=== PATIENT | male | born 1955 | race Caucasian/White ===

== ENCOUNTER → 2023-11-07 11:04 | Outpatient (REF) | payer MEDICARE, OTHER, SELFPAY | LOC: RCS 11:04 | PROVIDERS: ATTENDING PHYSICIAN Nurse Practitioner; FAMILY PHYSICIAN Internal Medicine | DX: I45.10 Unspecified right bundle-branch block (principal) | CPT/HCPCS: 93306 ==

== ENCOUNTER 2024-02-29 23:17 | Emergency (ER) | payer MEDICARE, OTHER, SELFPAY ==
[2024-02-29 23:18] VITALS: BP 188/86
[2024-02-29 23:21] LABS: Glucose - Point of Care 127 mg/dl (70-99)
[2024-02-29 23:33] VITALS: BMI 43.2
[2024-02-29 23:38] VITALS: BP 173/84
[2024-03-01 00:14] LABS: ALT (SGPT) 44 U/L (0-50); AST (SGOT) 30 U/L (17-59); Albumin 4.6 g/dl (3.5-5.0); Alkaline Phosphatase 58 U/L (38-126); Blood Urea Nitrogen 22 mg/dl (9-20); Carbon Dioxide 25 mmol/L (22-30); Chloride 105 mmol/L (98-107); Estimated Creatinine Clearance 84 ml/min; Glucose 143 mg/dl (70-99); Potassium 4.5 mmol/L (3.5-5.1); Sodium 141 mmol/L (135-145); Total Bilirubin 0.4 mg/dl (0.2-1.3); Total Protein 7.2 g/dl (6.3-8.2); eGFR > 60.00
--- NOTE | 2024-03-01 00:51 | ED.GENMED ---
History of Present Illness
General
Chief Complaint: Blood Sugar Problem
Source: patient
Exam Limitations: none
Time Seen by Provider: 02/29/24 23:26
Nursing documentation reviewed up to this point in time: agreed with
History of Present Illness
History of Present Illness:
68 y/o M ith h/o HTN HLD, DM
hs been on jardiance, metformim and glimeperide for a while and then just recently added mounjaro 7 weeks ago
was at a lower dose for 4 weeks and up to this dose the past 2 weeks and did the shot today around the same time in the afternon as all of his other meds (except bp meds, didn't take those today)
and his new dexcom monitor was alarming since around then that his BG wa 50s
pt says that he hd it alarm overnight lats night too
40s were the lowest readings, most int he 50 despite him eating and drinking sugary foods/drinks
he feels fine
he doesn't have a regular glucometer at home anymore
got the dexcom 10 days ago, but it was a trial for 3 dys and then this one has been on for 7 days
he thinks maybe he bumped it but he isn't sure
Past History
Past History
ED Past Medical History: Asthma, HTN, Hypercholesterolemia, NIDDM, Other (Kidney stones, obstructive sleep apnea utilizes CPAP nightly), Other (Morbid obesity) and Other (Asthma, hypertension, hyperlipidemia, diabetes)
Social History
Tobacco: Non-smoker
Alcohol: Occasional
Personal:
Living: with family
Employment: Retired
Family History
Family History: Hypertension
Review of Systems
Review of Systems
Allergies reviewed?: Yes
All Other Systems: Not applicable
Phy Exam
Physical Exam
Physical Exam:
GENERAL: Alert , in no apparent distress
ENT: o/p clr, mmm.
CARDIAC: Regular rate and rhythm .
LUNGS: Clear breath sounds bilaterally, no acute respiratory distress, no wheezes/rales/rhonchi
ABDOMEN: Soft, obese without focal tenderness, no r/g, no cvat, normal bowel sounds
NEUROLOGICAL: Alert and oriented, no focal neuro deficits
PSYCH: Normal and appropriate interaction.
Course
Orders/Labs/Results
Orders:
Orders
02/29/24 23:53
Comprehensive Metabolic Panel Urgent
Abnormal Lab Results
02/29/24 02/29/24
23:20 23:53
BUN 22 H mg/dl
(9-20)
Glucose 143 H mg/dl
(70-99)
POC Glucose 127 H mg/dl
(70-99)
02/29/24 23:53
Vital Signs
Initial and Last Documented VS:
Initial Vital Signs
Temp Pulse Resp BP Pulse Ox
98.3 F 85 18 188/86 99
02/29/24 23:18 02/29/24 23:18 02/29/24 23:18 02/29/24 23:18 02/29/24 23:18
Last Documented Vital Signs
Temp Pulse Resp BP Pulse Ox
98.3 F 79 18 173/84 94
02/29/24 23:18 02/29/24 23:38 02/29/24 23:18 02/29/24 23:38 02/29/24 23:38
MDM/Problems Addressed
Differential Diagnosis Includes:
abnormal monitor/malfunction of device
hypoglycemia
MDM/Problems Addressed:
68 y/o M
some changes to dm meds recently
new dexcom readings low today
pt didn't take his bp meds
elevated bp but downtrending
no symptos of hypoglycemia
pt does take oral hypoglycemia glimeperide
but no changes
accucheck 127 and dexcom reaing 55
serum bg confirmed 143 and dexcom again reading 52
thus this confirms device malfucntion
pt instructed to take it off tonight and ither swith to another monitor or use gluometer strips etc and call hi tempering machine operator.
take bp meds when home
*Critical Care Note
Total Time (30-74mins, 75-104mins- exclusive of procedures): Not Applicable
ED Attending Note
-
Portions of this chart may have been created with voice recognition software.� Occasional wrong word or��sound alike� substitutions may have occurred due to the inherent limitations of voice recognition software.
Discharge Plan
Departure
Patient Disposition: Home (Routine Discharge)
Patient with high blood pressure during this ER visit?: Yes
Condition: Fair
Covid-19: Not Applicable
Discharge Problem:
Borderline hyperglycemia, Malfunction of device
Instructions: Type 2 Diabetes (DC), BLOOD PRESSURE
Prescriptions:
No Action
metformin 500 mg Tablet
500 mg PO TID
fluticasone propion-salmeterol 250-50 mcg/dose Blister With Device
1 inh INHALATION DAILY
pravastatin 40 mg Tablet
40 mg PO DAILY
fexofenadine [Sofia] 180 mg Tablet
180 mg PO DAILY
amlodipine 10 mg Tablet
10 mg PO DAILY
potassium citrate 10 mEq (1,080 mg) Tablet Extended Release
10 meq PO BID
glimepiride 4 mg Tablet
4 mg PO BID
candesartan 32 mg Tablet
32 mg PO DAILY
montelukast 10 mg Tablet
10 mg PO DAILY
hydralazine 50 mg Tablet
50 mg PO BID
ezetimibe 10 mg Tablet
10 mg PO DAILY
testosterone 1.62 % (20.25 mg/1.25 gram) Gel In Packet
1 packet DAILY
Jardiance 25 mg Tablet
25 mg PO DAILY
Mounjaro 5 mg/0.5 mL Pen Injector
5 mg SC QWEEK
(DME) Dexcom G7 Sensor Device
MISCELLANEOUS
Referrals:
Lauri Henderson MD [Family Provider] - Follow up in 2-3 days
Activity Restrictions/Additional Instructions:
YOUR BLOOD SUGAR WAS CONFIRMED TO BE 127 ON THE FINGER PRICK AND 143 ON THE SERUM AND DOES NOT MATCH YOUR DEVICE READINGS THUS CONFIRMING THERE IS SOMETHING MALFUNCTIONING WITH YOUR DEXCOM
SPEAK WITH YOUR SUBWAY TRAIN OPERATOR TOMORROW REGARDING YOUR QUESTIONS ABOUT CONTINUING YUOR MEDICATIONS
BUT IN THE MEANTIME, TURN THE MONITOR OFF FOR TONIGHT
RETURN FOR ANY CONCERNS
TAKE YOUR BLOO PRESSURE MEDICATIONS.
Interventions
Interventions:
*Risk Screen - Suicide Last Done: 02/29/24 23:38
*General Assessment Last Done: 02/29/24 23:18
*Neglect/Abuse Screening Last Done: 02/29/24 23:38
ED- Fall Risk Assessment Last Done: 02/29/24 23:38
*ED COVID-19 Vaccine History Last Done: 02/29/24 23:36
*Nursing Disposition Last Done: 03/01/24 00:30
ED- Neurological Assessment Last Done: 02/29/24 23:39
Discharge Date and Time
Discharge Date/Time: 03/01/24 00:30
Print Language: MAORI
== END 2024-03-01 00:30 | disposition home or self-care (01) ==
LOC: EMR 23:17
PROVIDERS: Physician Assistant; EMERGENCY PHYSICIAN Student in an Organized Health Care Education/Training Program; FAMILY PHYSICIAN Internal Medicine
DX: E11.65 Type 2 diabetes mellitus with hyperglycemia (principal); T85.698A Other mechanical complication of other specified internal prosthetic devices, implants and grafts, initial encounter; X58.XXXA Exposure to other specified factors, initial encounter; Y82.9 Unspecified medical devices associated with adverse incidents; I10 Essential (primary) hypertension; E78.00 Pure hypercholesterolemia, unspecified
CPT/HCPCS: 99283; 80053; 82962

== ENCOUNTER 2024-08-27 16:34 | Inpatient (IN) | payer MEDICARE, OTHER, SELFPAY ==
[2024-08-26] VITALS (14 sets, daily range): BP systolic 115–156; BP diastolic 63–134; PULSE 74–80; BMI 38.7; BMI 40.6
--- NOTE | 2024-08-26 14:51 | ED.CVA ---
ED Provider Triage
<Michael Resendez PA-C - Last Filed: 08/26/24 14:52>
-
Patient seen by provider in Triage?: Seen in Triage
69-year-old male sent in by cardiology for symptoms including headache feeling unsteady dizziness. Having trouble walking with associated burning of the lips. Recently started Crestor. No shortness of breath. No chest pain
Vital signs are stable through triage. There is no aphasia or dysarthria triage. Does note ongoing dizziness will start workup with basic labs EKG. CT head ordered also after discussing with emergency room attending, ordered CT angio of the head
and neck
Patient seen by medical provider at triage but does require further assessment
History of Present Illness
<Michael Resendez PA-C - Last Filed: 08/26/24 14:52>
General
Chief Complaint: CVA/TIA Symptoms
Time Seen by Provider: 08/26/24 19:13
<Akilah Lynn PA-C - Last Filed: 08/27/24 12:26>
General
Source: patient and family
Exam Limitations: none
Onset of Stroke Symptoms
Onset of symptoms known: Yes
Date of onset of symptoms: 08/25/24
History of Present Illness
History of Present Illness:
69yoM with a history of hypertension, hyperlipidemia, type 2 diabetes, obesity, and asthma presenting with his for evaluation of dizziness. Symptoms initially began yesterday morning when he was taking a shower. He states he felt very
unsteady on his feet and he thought he was about to fall. The symptoms initially subsided and he was able to do normal activities for the holiday. Symptoms recurred in the evening and are also present today. Patient is having significant
difficulty with ambulation due to his symptoms. He also reports some burning in his lips. He started taking rosuvastatin 3 days ago and initially thought he may have been having a medication side effect. He called his bag checker who told him
that his symptoms were not related to the medication and he was advised to go to the ED for evaluation. states he is not acting himself and has been very forgetful. Patient describes his dizziness as feeling unsteady and shaky. Patient
denies weakness, paresthesias, visual disturbance.
Past History
<Michael Resendez PA-C - Last Filed: 08/26/24 14:52>
Past History
ED Past Medical History: Asthma, HTN, Hypercholesterolemia, NIDDM, Other (Kidney stones, obstructive sleep apnea utilizes CPAP nightly), Other (Morbid obesity) and Other (Asthma, hypertension, hyperlipidemia, diabetes)
Social History
Tobacco: Non-smoker
Alcohol: Occasional
Personal:
Living: with family
Employment: Retired
Family History
Family History: Hypertension
Phy Exam
<Akilah Lynn PA-C - Last Filed: 08/27/24 12:26>
General Physical Exam
General Presentation: well appearing and no apparent distress
General age: appears stated age
General Skin: warm and dry
General Habitus: normal
ENT Exam
ENT Exam: normocephalic
Eye Exam
Eye Exam: PERRL and EOMI
Cardiovascular Exam
Cardiovascular Exam: regular rate/rhythm
Pulmonary Exam
Pulmonary Exam: lungs clear, no respiratory distress, no rales, no crackles and no rhonchi
Neurological Exam
Neurological Exam: alert, CN II-XII intact, no motor deficits, no sensory deficits, speech normal and other (CN 2-12 grossly intact. PERRL. EOMs intact. Negative drift x4. 5/5 strength and gross sensation intact in all extremities. Normal finger to
nose and heel to alvarado bilaterally.)
NIH Stroke Score
Level of Consciousness: 0 - Alert
LOC questions: 0-Answers both correctly
LOC Commands: 0-Performs both correctly
Best Gaze: 0-Normal
Visual Guerrero: 0=Normal, no visual loss
Facial palsy: 0=Normal, symmetrical
Motor - Right Arm: 0=No drift 10 seconds
Motor - Left Arm: 0=No drift 10 seconds
Motor - Right Le-No drift 5 seconds
Motor - Left Le-No drift 5 seconds
Limb Ataxia: 0-Absent
Sensation: 0-Normal
Best Language: 0-No aphasia
Dysarthria: 0-Normal
Extinction and Inattention: 0-No abnormality
Total Score:: 0
Rody Coma Scale
Eye Opening: Spontaneous
Verbal Response: Oriented
Motor Response: Obeys Commands
GCS Total Score: 15
Skin Exam
Skin Exam: normal color and warm/dry
Psychiatric Exam
Psychiatric Exam: normal mood/affect
Course
<Michael Resendez PA-C - Last Filed: 08/26/24 14:52>
Orders/Labs/Results
Orders:
Orders
08/26/24 Breakfast
2000 calorie (17 carb) Diabetic
At Your Request: Full Participation
08/26/24 14:49
Electrocardiogram (*1) Urgent
Reason for Study: TIA/Stroke
EKG- Treatment ONCE
08/26/24 14:50
CT Head & Neck Angio W/wo IV Stat
Comment: ORDER COMBINED
Reason For Exam: dizzy
08/26/24 14:55
Complete Blood Count/With Diff Urgent
Comprehensive Metabolic Panel Urgent
08/26/24 19:30
Orthostatic VS- Treatment ONCE
0.9% Sodium Chloride 1000 ml [Nss] 1,000 ml IV BOLUS
08/26/24 19:45
Urinalysis Reflex To Culture Urgent
Date Specimen was Collected: 08/26/24
Time Specimen was Collected: 19:44
Urine Microscopic Reflex Cult Urgent
Urine Culture Urgent
GOLD Source: U
Specimen Description:
Date Specimen was Collected: 08/26/24
Time Specimen was Collected: 19:44
08/26/24 20:08
Admit/Transfer Patient As Directed
Co-Sign Provider:
Level of Care: Observation services
Assign to:: Telemetry
Physician / Group: jessica
Diagnosis: TIA
Reason for Telemetry: CVA/TIA
Date to Stop Telemetry: 08/29/24
Time to Stop Telemetry: 11:00
Code Status As Directed
Resuscitation Status: Full Code
PRN Pain Medication Management As Directed
May give lesser potent ordered pain med per pt: Yes
preference::
Protocol:: Medication orders for pain may be administered in a
manner that supports deferring to patient preference
when the pt is:
- Requesting an ordered lesser potent pain medication.
Least to most potent pain medications are defined
as: acetaminophen < NSAID < tramadol < opioids
(morphine, oxycodone, hydromorphone).
- Requesting a lesser dose of the same medication IF
ORDERED.
- Requesting a less intrusive route of administration
if both routes are prescribed by the provider (PO <
IV).
08/26/24 20:18
Meclizine [Antivert] 25 mg PO NOW STA
08/26/24 21:42
0.9% Sodium Chloride 1000 ml [Nss] 1,000 ml IV 100 mls/hr
Acetaminophen [Tylenol/Feverall] 650 mg RECTAL Q4HPRN PRN
Acetaminophen [Tylenol] 650 mg PO Q4HPRN PRN
Dextrose 50%-Water [Dextrose 50% Syringe] 12.5 grams IV [id number] PRN
Glucagon [GlucaGen] 1 mg IM PRN PRN
Triamcinolone Ointment [Triamcinolone Acetonide 0.1% Ointment] 1 applic TOPICAL DAILYPRN PRN
08/26/24 21:42
Case Management Consult ONCE
Case Management Consult: Discharge Planning
Comment: stroke/tia
DIETARY CONSULT Routine
Reason for Consult: stroke/TIA
Plastic Eye Technician Urgent
Activity As Directed
Activity Level: As Tolerated
Bedside Glucose Monitoring As Directed
Frequency: AC&HS
Additional Instructions:: Change to q6h if pt on TPN, tube feeding or not eating
NIH Stroke Scale As Directed
Directions: Per protocol
Comment: every shift and with any change in condition or mental status
Neurological Checks As Directed
Frequency: q4h
Additional Instructions:: q4h x 24h upon admission to the floor, then qshift & with any change in condition
and mental status
Orthostatic Vital Signs As Directed
Orthostatic VS Frequency: BID
Patient Education As Directed
Type: Stroke education packet
Comment: provide to patient and family
Pneumatic Compression Sleeves As Directed
Type: Thigh high
Vital Signs As Directed
Frequency: Per unit guidelines
Cpap [RESP] Routine
Patient to use own unit?: Yes
Ot Eval And Treat Routine
Pt Eval And Treat Routine
Activity Level: As Tolerated
Speech Therapy Eval & Treat Routine
DX Deep Vein Thrombosis Video Routine
08/27/24 07:30
Insulin Aspart Corrective Low [Novolog Flexpen-Low Resistance] See Protocol SC AC
08/27/24 08:00
Amlodipine [Norvasc] 10 mg PO DAILY
Aspirin Chewable [Low Strength Aspirin] 81 mg PO DAILY
Ezetimibe [Zetia] 10 mg PO DAILY
Fluticasone/Salmeterol 115/21 [Advair Hfa 115/21 Mcg Inhaler] 2 puff INH R DAILY
HydrALAZINE [Apresoline] 50 mg PO BID
Montelukast Sodium [Singulair] 10 mg PO DAILY
Potassium Citrate [Urocit-K] 10 meq PO BID
fluticasone propionate 1 spray NASAL DAILY
testosterone 1 pump TOPICAL DAILY
08/27/24 08:09
Basic Metabolic Panel IN AM
Cardiovascular Evaluation IN AM
Complete Blood Count/No Diff IN AM
Glycohemoglobin (HgbA1c) IN AM
08/29/24 11:00
DC Protocol for Telemetry ONCE
Abnormal Lab Results
08/26/24 08/26/24
14:55 19:45
WBC 11.0 H 10^3/uL
(4.8-10.8)
Absolute Neuts (auto) 7.7 H 10^3/uL
(1.4-6.5)
Absolute Monos (auto) 0.7 H 10^3/uL
(0.1-0.6)
Carbon Dioxide 19 L mmol/L
(22-30)
BUN 34 H mg/dl
(9-20)
Creatinine 1.7 H mg/dL
(0.7-1.3)
Glucose 175 H mg/dl
(70-99)
Leukocyte Esterase Rfl 2+ A
(Negative)
Urine Bacteria (Reflex) Few A
(Negative)
Urine Glucose 3+ A
(Negative)
08/26/24 14:55
08/26/24 14:55
Vital Signs
Initial and Last Documented VS:
Initial Vital Signs
Temp Pulse Resp BP Pulse Ox
98.2 F 90 16 144/96 95
08/26/24 14:48 08/26/24 14:48 08/26/24 14:48 08/26/24 14:48 08/26/24 14:48
Last Documented Vital Signs
Temp Pulse Resp BP Pulse Ox
98.0 F 80 18 150/74 93
08/27/24 11:01 08/27/24 11:01 08/27/24 11:01 08/27/24 11:01 08/27/24 11:01
<Akilah Lynn PA-C - Last Filed: 08/27/24 12:26>
Orders/Labs/Results
Orders:
Orders
08/26/24 Breakfast
2000 calorie (17 carb) Diabetic
At Your Request: Full Participation
08/26/24 14:49
Electrocardiogram (*1) Urgent
Reason for Study: TIA/Stroke
EKG- Treatment ONCE
08/26/24 14:50
CT Head & Neck Angio W/wo IV Stat
Comment: ORDER COMBINED
Reason For Exam: dizzy
08/26/24 14:55
Complete Blood Count/With Diff Urgent
Comprehensive Metabolic Panel Urgent
08/26/24 19:30
Orthostatic VS- Treatment ONCE
0.9% Sodium Chloride 1000 ml [Nss] 1,000 ml IV BOLUS
08/26/24 19:45
Urinalysis Reflex To Culture Urgent
Date Specimen was Collected: 08/26/24
Time Specimen was Collected: 19:44
Urine Microscopic Reflex Cult Urgent
Urine Culture Urgent
GOLD Source: U
Specimen Description:
Date Specimen was Collected: 08/26/24
Time Specimen was Collected: 19:44
08/26/24 20:08
Admit/Transfer Patient As Directed
Co-Sign Provider:
Level of Care: Observation services
Assign to:: Telemetry
Physician / Group: jessica
Diagnosis: TIA
Reason for Telemetry: CVA/TIA
Date to Stop Telemetry: 08/29/24
Time to Stop Telemetry: 11:00
Code Status As Directed
Resuscitation Status: Full Code
PRN Pain Medication Management As Directed
May give lesser potent ordered pain med per pt: Yes
preference::
Protocol:: Medication orders for pain may be administered in a
manner that supports deferring to patient preference
when the pt is:
- Requesting an ordered lesser potent pain medication.
Least to most potent pain medications are defined
as: acetaminophen < NSAID < tramadol < opioids
(morphine, oxycodone, hydromorphone).
- Requesting a lesser dose of the same medication IF
ORDERED.
- Requesting a less intrusive route of administration
if both routes are prescribed by the provider (PO <
IV).
08/26/24 20:18
Meclizine [Antivert] 25 mg PO NOW STA
08/26/24 21:42
0.9% Sodium Chloride 1000 ml [Nss] 1,000 ml IV 100 mls/hr
Acetaminophen [Tylenol/Feverall] 650 mg RECTAL Q4HPRN PRN
Acetaminophen [Tylenol] 650 mg PO Q4HPRN PRN
Dextrose 50%-Water [Dextrose 50% Syringe] 12.5 grams IV [id number] PRN
Glucagon [GlucaGen] 1 mg IM PRN PRN
Triamcinolone Ointment [Triamcinolone Acetonide 0.1% Ointment] 1 applic TOPICAL DAILYPRN PRN
08/26/24 21:42
Case Management Consult ONCE
Case Management Consult: Discharge Planning
Comment: stroke/tia
DIETARY CONSULT Routine
Reason for Consult: stroke/TIA
Plastic Eye Technician Urgent
Activity As Directed
Activity Level: As Tolerated
Bedside Glucose Monitoring As Directed
Frequency: AC&HS
Additional Instructions:: Change to q6h if pt on TPN, tube feeding or not eating
NIH Stroke Scale As Directed
Directions: Per protocol
Comment: every shift and with any change in condition or mental status
Neurological Checks As Directed
Frequency: q4h
Additional Instructions:: q4h x 24h upon admission to the floor, then qshift & with any change in condition
and mental status
Orthostatic Vital Signs As Directed
Orthostatic VS Frequency: BID
Patient Education As Directed
Type: Stroke education packet
Comment: provide to patient and family
Pneumatic Compression Sleeves As Directed
Type: Thigh high
Vital Signs As Directed
Frequency: Per unit guidelines
Cpap [RESP] Routine
Patient to use own unit?: Yes
Ot Eval And Treat Routine
Pt Eval And Treat Routine
Activity Level: As Tolerated
Speech Therapy Eval & Treat Routine
DX Deep Vein Thrombosis Video Routine
08/27/24 07:30
Insulin Aspart Corrective Low [Novolog Flexpen-Low Resistance] See Protocol SC AC
08/27/24 08:00
Amlodipine [Norvasc] 10 mg PO DAILY
Aspirin Chewable [Low Strength Aspirin] 81 mg PO DAILY
Ezetimibe [Zetia] 10 mg PO DAILY
Fluticasone/Salmeterol 115/21 [Advair Hfa 115/21 Mcg Inhaler] 2 puff INH R DAILY
HydrALAZINE [Apresoline] 50 mg PO BID
Montelukast Sodium [Singulair] 10 mg PO DAILY
Potassium Citrate [Urocit-K] 10 meq PO BID
fluticasone propionate 1 spray NASAL DAILY
testosterone 1 pump TOPICAL DAILY
08/27/24 08:09
Basic Metabolic Panel IN AM
Cardiovascular Evaluation IN AM
Complete Blood Count/No Diff IN AM
Glycohemoglobin (HgbA1c) IN AM
08/29/24 11:00
DC Protocol for Telemetry ONCE
Abnormal Lab Results
08/26/24 08/26/24
14:55 19:45
WBC 11.0 H 10^3/uL
(4.8-10.8)
Absolute Neuts (auto) 7.7 H 10^3/uL
(1.4-6.5)
Absolute Monos (auto) 0.7 H 10^3/uL
(0.1-0.6)
Carbon Dioxide 19 L mmol/L
(22-30)
BUN 34 H mg/dl
(9-20)
Creatinine 1.7 H mg/dL
(0.7-1.3)
Glucose 175 H mg/dl
(70-99)
Leukocyte Esterase Rfl 2+ A
(Negative)
Urine Bacteria (Reflex) Few A
(Negative)
Urine Glucose 3+ A
(Negative)
08/26/24 14:55
08/26/24 14:55
Vital Signs
Initial and Last Documented VS:
Initial Vital Signs
Temp Pulse Resp BP Pulse Ox
98.2 F 90 16 144/96 95
08/26/24 14:48 08/26/24 14:48 08/26/24 14:48 08/26/24 14:48 08/26/24 14:48
Last Documented Vital Signs
Temp Pulse Resp BP Pulse Ox
98.0 F 80 18 150/74 93
08/27/24 11:01 08/27/24 11:01 08/27/24 11:01 08/27/24 11:01 08/27/24 11:01
<Akilah Lynn PA-C - Last Filed: 08/27/24 12:26>
MDM/Problems Addressed
Differential Diagnosis Includes:
69yoM here with gait imbalance, shakiness, and forgetfulness since yesterday. Also c/o burning lips. Recently started on rosuvastatin. VSS. He is non-toxic appearing. No focal neuro deficits noted. NIHSS 0. Differential diagnosis includes but is not
limited to: dehydration, orthostatic hypotension, vertigo, CVA, arrhythmia
Initial ED plan: Labs and CT obtained in triage. Labs reveal a creatinine of 1.7, up from baseline of 1.2. CTA head/neck negative for large vessel occlusion and acute findings. Patient and report significant difficulty with ambulation due to
his symptoms. Will check orthostatic vital signs and IV fluid bolus ordered. Will admit for further evaluation.
<Akilah Lynn PA-C - Last Filed: 08/27/24 12:26>
*EKG
Interpreted by ED Provider?: Yes
EKG Intrepretation Date: 08/26/24
Heart Rate: 74
Rate: normal
Rhythm: sinus
Meredith: normal axis
QRS Pattern: right bundle branch block
Ischemia: no ischemia
*Critical Care Note
Total Time (30-74mins, 75-104mins- exclusive of procedures): Not Applicable
ED Attending Note
<Michael Resendez PA-C - Last Filed: 08/26/24 14:52>
-
Portions of this chart may have been created with voice recognition software.� Occasional wrong word or��sound alike� substitutions may have occurred due to the inherent limitations of voice recognition software.
Discharge Plan
Departure
Patient Disposition: Admit
Date of Disposition: 08/26/24
Time of Disposition: 19:34
Presentation/result/management discussed w/ accepting MD/DO: Hospitalist
Discharge Problem:
Gait disturbance, Change in mental status, Acute kidney injury
Interventions
Interventions:
*Risk Screen - Suicide Last Done: 08/26/24 22:15
*General Assessment Last Done: 08/26/24 18:07
*Neglect/Abuse Screening Last Done: 08/26/24 14:51
ED- Fall Risk Assessment Last Done: 08/26/24 18:07
*ED COVID-19 Vaccine History Last Done: 08/26/24 22:15
*Nursing Disposition Last Done: 08/26/24 21:40
ED- Pulmonary Assessment Last Done: 08/26/24 18:07
ED- Neurological Assessment Last Done: 08/26/24 19:17
ED- Cardiac Assessment Last Done: 08/26/24 19:17
ED Swallowing Screen Last Done: 08/26/24 18:07
Discharge Date and Time
Discharge Date/Time: 08/26/24 21:41
[2024-08-26 15:06] LABS: % Basophils 0.6 % (0-2); % Eosinophils 1.8 % (0-6); % Immature Granulocytes 0.4 % (0-0.5); % Monocytes 6.3 % (1.7-9.3); % Neutrophils 69.9 % (42.2-75.2); Absolute Basophils 0.1 10^3/uL (0-0.2); Absolute Eosinophils 0.2 10^3/uL (0-0.7); Absolute Lymphocytes 2.3 10^3/uL (1.2-3.4); Absolute Monocytes 0.7 10^3/uL (0.1-0.6); Absolute Neutrophils 7.7 10^3/uL (1.4-6.5); Hematocrit 48.5 % (39.0-52.0); Hemoglobin 16.5 g/dL (13.0-18.0); Mean Corpuscular Hgb 30.1 pg (27.0-31.0); Mean Corpuscular Volume 88.5 fL (80.0-94.0); Mean Platelet Volume 9.7 fL (7.4-10.4); Nucleated Red Blood Cells % 0 % (-); Platelet Count 220 10^3/uL (130-400); Red Blood Cell Count 5.48 10^6/uL (4.70-6.10); Red Cell Dist. Width 13.5 % (11.5-14.5)
[2024-08-26 15:24] LABS: ALT (SGPT) 37 U/L (0-50); AST (SGOT) 25 U/L (17-59); Albumin 4.6 g/dl (3.5-5.0); Alkaline Phosphatase 53 U/L (38-126); Blood Urea Nitrogen 34 mg/dl (9-20); Calcium 9.5 mg/dl (8.4-10.2); Carbon Dioxide 19 mmol/L (22-30); Chloride 107 mmol/L (98-107); Glucose 175 mg/dl (70-99); Potassium 4.4 mmol/L (3.5-5.1); Sodium 137 mmol/L (135-145); Total Bilirubin 0.4 mg/dl (0.2-1.3); eGFR 43.37
[2024-08-26] MEDS: NSS 1000 IV ×2 (19:39→22:37)
--- NOTE | 2024-08-26 19:47 | HPS.HSE ---
Addendum entered and electronically signed by Edgar Valente DO 08/26/24 20:35:
Patient seen and examined independently. Agree with findings and plan as set forth by TORY Gomez.
Patient is a 69y M with PMH significant for HTN, DM-II and asthma who presents to ED complaining of dizziness / room spinning, confusion and generally feeling 'not myself'. Patient states that he started taking rosuvastatin on Friday or Friday
of this week. No other new medications. No sore throat, fever, cough, N/V/D, etc. Patient denies any actual fall or injury. He denies any prior history of similar symptoms.
Ass:
Dizziness / Vertigo
Acute Encephalopathy / Confusion
ERIC
Benign Hypertension
DM-II
Asthma without Acute Exacerbation
Obesity due to excess calories
SANDEE on CPAP
Plan:
Admit for further evaluation and treatment.
Work-up in the ED largely unremarkable - though symptoms persist.
MRI brain in the AM.
PT / OT / Vestibular therapy evaluations.
Hold rosuvastatin for now.
Hold nephrotoxic meds including ARB, spironolactone, etc.
IVFs and repeat labs in the AM.
Original Note:
Family Physician
-
Family Physician: Lauri Henderson
Chief Complaint
-
dizzy
History of Present Illness
69yoM with a history of hypertension, hyperlipidemia, type 2 diabetes, obesity, and asthma presenting with his for evaluation of dizziness. Symptoms initially began yesterday morning when he was taking a shower. He states he felt very
unsteady on his feet and he thought he was about to fall. he felt the room was spinning. they symptoms persisted throughout the day. it eases of when he is sitting down, but the symptoms gets worse everytime he moves. patient complained his lips and
tongue were burning. he was noted confused as per . he was forgetting what medication he was taking. he started taking rosuvastatin 3 days ago and initially thought he may have been having a medication side effect.stated some CURRY. denied fever,
chills, chest pain, sob. denied runny nose, congestion, cough. denied abdominal pain,n,v,d. denied dysuria or hematuria.
CTA negative. admitting for further management.
Medical History
Past Medical History
Past Medical History: Reports Other
Additional Past Medical History:
kidney stones
BPh
cervical spinal stenosis
left cervical radiculopathy
HLD
asthma
HTn
Eczema
Past Surgical History: Reports Other
Additional Past Surgical History:
right knee surgery
left shoulder surgery
Social History
Tobacco: Non-smoker
Alcohol: None
Drug: None
Personal:
Living: With Family
Family History
Family History: Not pertinent
Allergies / Home Medications
Allergies reflects when Allergies were last updated in [facility].
Home Medications with original date entered in [facility]
Allergy/Medication List:
Allergies
Allergy/AdvReac Type Severity Reaction Status Date / Time
carribean lobster Allergy Anaphylaxis Uncoded 08/26/24 17:58
macadamia nuts Allergy Anaphylaxis Uncoded 08/26/24 17:58
Home Medications
amlodipine 10 mg tablet 10 mg PO DAILY 02/29/24
candesartan 32 mg tablet 32 mg PO DAILY 02/29/24
empagliflozin 25 mg tablet (Jardiance) 25 mg PO DAILY 02/29/24
ezetimibe 10 mg tablet 10 mg PO DAILY 02/29/24
fexofenadine 180 mg tablet 180 mg PO DAILY 02/29/24
fluticasone 250 mcg-salmeterol 50 mcg/dose blistr powdr for inhalation 1 inh inhalation DAILY 02/29/24
glimepiride 4 mg tablet 4 mg PO BID 02/29/24
hydralazine 50 mg tablet 50 mg PO BID 02/29/24
metformin 500 mg tablet 500 mg PO TID 02/29/24
montelukast 10 mg tablet 10 mg PO DAILY 02/29/24
potassium citrate 10 mEq (1,080 mg) tablet,extended release 10 meq PO BID 02/29/24
pravastatin 40 mg tablet 40 mg PO DAILY 02/29/24
testosterone 1.62 % (20.25 mg/1.25 gram) transdermal gel packet 1 packet DAILY 02/29/24
tirzepatide 5 mg/0.5 mL subcutaneous pen injector (Mounjaro) 5 mg SC QWEEK 02/29/24
Review of Systems
-
Constitutional: Reports No Symptoms
EENT: Reports No Symptoms
Respiratory: Reports No Symptoms
Cardiac: Reports No Symptoms
Abdomen/GI: Reports No Symptoms
: Reports No Symptoms
Musculoskeletal: Reports No Symptoms
Skin: Reports No Symptoms
Neurological: Reports Dizzy and Headache
Endocrine: Reports No Symptoms
Hematologic/Lymphatic: Reports No Symptoms
Psych: Reports No Symptoms
Physical Exam
Vital Signs
Vital Signs
Temp Pulse Resp BP Pulse Ox
98.4 F 73 16 149/83 92
08/26/24 18:00 08/26/24 18:45 08/26/24 18:45 08/26/24 18:30 08/26/24 18:45
Physical Exam
General: Well Developed, Well Nourished and No Apparent Distress
HEENT: NormoCephalic, Moist mucous membranes and Atraumatic
Respiratory: Clear
Cardiac: S1/S2 and Regular Rhythm; No Murmur or Rub
GI: Soft, Non Tender, Non Distended and Normal Bowel Sounds; No Organomegaly
Rectal: Deferred by Provider
Musculoskeletal: No Clubbing, No Cyanosis and No Edema
Skin: No Rash
Neuro: AO x 3 and Nonfocal/grossly intact
Psych: Calm
Laboratory Results
-
08/26/24 14:55
08/26/24 14:55
Laboratory Results
Total Bilirubin 0.4 mg/dl (0.2-1.3) 08/26/24 14:55
AST 25 U/L (17-59) 08/26/24 14:55
ALT 37 U/L (0-50) 08/26/24 14:55
Alkaline Phosphatase 53 U/L (38-126) 08/26/24 14:55
Data Reviewed
-
CT Scan: Report Reviewed by me
Lab Data: Labs Reviewed by me
Impression/Plan
-
#dizzy/ambulatory dysfunction/metabolic encephalopathy r/o acute CVA/TIA/ vs vertigo
-CTA negative
-UA negative
-obtain MRI
-statin and asa continued
-PT/OT
-orthostatics
-consider neuro consult once MRI resulted
-meclizine prn for vertigo
#acute kidney/metabolic acidosis likely dehydration
-received fluids in ER
-normal saline continued
-BMP in am
#leukocytosis likely reactive
-wbc 11.0
-patient is afebrile
-UA negative
#type 2 Dm
-sliding scale
-CHO diet
-hold Jardiance, glimepiride, metformin
#essential HTN
-Norvasc,Hydralazine, continued with hold parameter
-hold ,candesartan,spironolactone
#Obstructive sleep apnea
-C pap continued
#hst of asthma
-patient not in acute exacerbation
-nebs from home continued
#HLD
-statin continued
#DVT prophylaxis
-scd
#CODE status
-full code
[2024-08-26 19:55] LABS: Urine Albumin Trace (Neg - Trace); Urine Bilirubin Negative (Negative); Urine Character Clear (Clear); Urine Color Yellow; Urine Glucose 3+ (Negative); Urine Ketone Negative (Negative); Urine Leukocyte 2+ (Negative); Urine Nitrite Negative (Negative); Urine Occult Blood Negative (Negative); Urine Specific Gravity 1.015 (<1.030); Urine Urobilinogen Negative (Neg - 1+)
--- NOTE | 2024-08-26 20:18 | PHANOTE ---
med rec tech(08/26/24)-Patient unsure of frequency of his pills, utilized [facility] from 07/23/24 and [facility] to confirm medication frequencies. Patient able to confirm some of his medications.
[2024-08-26 20:34] LABS: Urine Bacteria Few (Negative); Urine Hyaline Cast 0-2 /LPF (0-2); Urine Red Blood Cell 0-2 /HPF (0-2); Urine Squamous Cell 16-20 /LPF (Few)
[2024-08-26] MEDS: ANTIVERT 25 MG PO (21:05)
[2024-08-26 21:51] LABS: Glucose - Point of Care 121 mg/dl (70-99)
[2024-08-27] VITALS (10 sets, daily range): BP systolic 124–167; BP diastolic 72–98; PULSE 75–95; O2SAT 94
[2024-08-27] MEDS: NSS 1000 IV ×2 (06:30→17:18)
[2024-08-27] MEDS: ADVAIR HFA 115/21 MCG INHALER 2 PUFF INH (07:07)
[2024-08-27 07:48] LABS: Glucose - Point of Care 112 mg/dl (70-99)
--- NOTE | 2024-08-27 08:43 | W.PN.HOSP.TC ---
Today's Communication/Plan
-
cont IVF support, monitor renal function
blood pressure control
Glycemic control
ASA Plavix dual antiplatelet
resume home pravastatin
ST/PT/OT
Assessment / Plan
Assessment / Plan
Physical Exam
General: No acute distress, appears comfortable at this time
HEENT: NormoCephalic, Moist mucous membranes and Atraumatic
Respiratory: Clear
Cardiac: S1/S2 and Regular Rhythm; No Murmur or Rub
GI: Soft, Non Tender, Non Distended and Normal Bowel Sounds; No Organomegaly
Musculoskeletal: No Clubbing, No Cyanosis and No Edema, strength 5/5 all ext's
Skin: No Rash
Neuro: AO x 3 immediate and delayed recall intact, finger to nose test wnl, normal heel to alvarado test
Psych: Calm
69M HTN, HLD, DM, Obesity, and asthma p/w dizziness 1 day duration. Reported feeling very unsteady on his feet and he thought he was about to fall. Reported room spinning. Symptoms persisted throughout the day, relieved with sitting down, worse
every time he moves. Patient complained his lips and tongue burning. He was noted confused as per , forgetting what medication he was taking. He started taking rosuvastatin 3 days ago and initially thought he may have been having a medication
side effect. CTA negative. Subsequent MRI however returned positive for stroke. Patient was also noted to have mild ERIC on labwork.
#dizzy/ambulatory dysfunction/metabolic encephalopathy likely due to Stroke
-CTA negative
-UA negative
-MRI positive for acute on subacute infarction multiple areas Left Thalamus, Left Temporal, Right Occipital
-statin and asa continued, Plavix added for planned 21 days dual antiplatelet then cont with ASA alone.
-ST eval appreciated mild cognitive impairment (MOCA 23/30, normal 26/30 or above)
-PT/OT appreciated possible benefit Acute rehab vs outpt therapy (patient prefers outpt)
-orthostatic hypotension, monitor orthostatic vitals
-Neuro eval appreciated outpt follow up with Cardiology for ELKE and implantable awake overnight monitor
#acute kidney/metabolic acidosis likely dehydration
-cont IVF support
-monitor renal function
#leukocytosis likely reactive
-resolved without need for abx
#type 2 Dm
-sliding scale
-CHO diet
-hold Jardiance, glimepiride, metformin due to eric as above
#essential HTN
-Norvasc,Hydralazine, continued with hold parameter
-hold ,candesartan,spironolactone d/t eric and orthostatic hypotension as above
#Obstructive sleep apnea
-C pap continued
#hst of asthma
-patient not in acute exacerbation
-nebs from home continued
#HLD
-statin continued
#DVT prophylaxis
-scd
#CODE status
-full code
Discussed with patient and patient's María
I spent a total of 50 minutes with the patient or on the floor. More than 50% of this time involved counseling and coordination of care.
Anticipated Discharge: 24 - 48 hours
Subjective/Interval History
-
Date of Service: August 27, 2024
Seen and examined at bedside in no acute distress sitting up comfortably in chair. Overall reports feeling well. Dizziness resolved. María present during evaluation.
Objective Data
-
Labs:
Laboratory Results
08/27/24
08:09
WBC Pending
Hgb Pending
Hct Pending
Plt Count Pending
Sodium Pending
Potassium Pending
Chloride Pending
Carbon Dioxide Pending
BUN Pending
Creatinine Pending
Glucose Pending
Calcium Pending
Vital Signs:
Vital Signs
Temp Pulse Resp BP Pulse Ox
98.3 F 81 18 124/74 94
08/27/24 07:31 08/27/24 07:31 08/27/24 07:31 08/27/24 07:31 08/27/24 07:31
I&O
08/26/24 08/27/24 08/28/24
06:59 06:59 06:59
Intake Total 0 / 0
Balance 0 / 0
[2024-08-27] MEDS: APRESOLINE 50 MG PO ×2 (08:59→20:30)
[2024-08-27] MEDS: UROCIT-K 10 MEQ PO ×2 (08:59→20:30)
[2024-08-27] MEDS: LOW STRENGTH ASPIRIN 81 MG PO (08:59)
[2024-08-27] MEDS: NORVASC 10 MG PO (08:59)
[2024-08-27] MEDS: SINGULAIR 10 MG PO (08:59)
[2024-08-27] MEDS: ZETIA 10 MG PO (08:59)
[2024-08-27 09:29] LABS: Blood Urea Nitrogen 25 mg/dl (9-20); Calcium 8.5 mg/dl (8.4-10.2); Carbon Dioxide 20 mmol/L (22-30); Chloride 110 mmol/L (98-107); HDL Cholesterol 32 mg/dl; LDL Cholesterol, Calculated 68 mg/dl; Potassium 4.3 mmol/L (3.5-5.1); Sodium 138 mmol/L (135-145); Total Cholesterol 125 mg/dl (50-199); Triglyceride 127 mg/dl (10-149); Very Low Density Lipoprotein 25 mg/dl (0-30)
[2024-08-27 09:38] LABS: Estimated Creatinine Clearance 68 ml/min; Glucose 103 mg/dl (70-99); Hematocrit 44.2 % (39.0-52.0); Mean Corp Hgb Conc. 33.9 g/dL (33.0-37.0); Mean Corpuscular Hgb 30.5 pg (27.0-31.0); Mean Corpuscular Volume 89.8 fL (80.0-94.0); Platelet Count 190 10^3/uL (130-400); Red Blood Cell Count 4.92 10^6/uL (4.70-6.10); Red Cell Dist. Width 13.8 % (11.5-14.5); White Blood Cell Count 9.4 10^3/uL (4.8-10.8); eGFR 54.75
--- NOTE | 2024-08-27 10:53 | PTOTSP ---
SPEECH THERAPY SWALLOW/SPEECH/LANGUAGE/COGNITIVE COMMUNICATION EVALUATION:
Patient exhibits grossly functional oropharyngeal swallow at this time. No history of dysphagia noted. Patient remains at risk for dysphagia/aspiration due to possible acute CVA/TIA. Recommend continue Regular texture solids, thin liquids.
Medications whole with liquid as best tolerated. General aspiration precautions. ST to follow briefly to ensure adequate diet tolerance.
Patient exhibits grossly functional speech and expressive/receptive language skills, and mild cognitive communication skills characterized by difficulties with STM, visuospatial skills, abstraction, and higher level executive functioning skills.
MOCA version 8.1 was administered. Patient achieved a score of 23/30, indicating slightly below normal level (greater than or equal to 26/30). Subscores as follows: Visuospatial/Executive functionin/5. Namin/3. Attention: 6/6. Language: 3/3.
Abstraction: 2/2. Delayed Recall: 0/5. Orientation: 5/6. Patient appears to be below baseline level of functioning. Skilled ST services for speech/language/cognitive communication are indicated at this time pending MRI results.
RECOMMEND:
1) Regular texture diet, thin liquids
2) Medications whole with liquid as best tolerated
3) General aspiration precautions
4) ST to follow for swallow and cognitive communication therapy
[2024-08-27 11:28] LABS: Glycohemoglobin (HgbA1c) 5.9 % (4.0-5.6)
--- NOTE | 2024-08-27 15:32 | CON.NEURO ---
Neuro Assessment/Plan
Assessment
Acute onset dizziness and mental fogginess
Evidence by MRI of the brain of acute/subacute ischemic lesions in the left thalamic, left temporal lobe, and right occipital lobe with chronic lacunar infarcts in bilateral thalami.
Patient was not a candidate for either tenecteplase or intra-arterial thrombectomy due to timeframe out of window
Plan
Agree with initiation of Aspirin and Clopidogrel for 21 days then Aspirin alone
OK to switch back to Pravastatin for cholesterol control due to concerns with Rosuvastatin by patient
check ELKE and have implantable site monitor as outpatient by occ ther due to multiple and variable location ischemic lesions
OK outpatient rehabilitation
Medical educational materials to be provided
Rehab evaluation
Goal of normotension
Goal of normoglycemia
DVT prophylaxis
Continue CPAP use
Will follow peripherally.
Consultation
Order
Date of Consultation: 08/27/24
Requesting Provider: Hospitalist
Reason for Consult: Dizziness
Subjective/Objective
Subjective Data
Date of Service: August 27, 2024
Right-Handed
Patient began developing sense of brain fog, nausea, and unsteadiness as of August 25, 2024 approximately 2 days after initiation of rosuvastatin and discontinuance of pravastatin. On 08/26/2024, the patient developed a sense of confusion,
continued unsteadiness and lip burning.
Patient was then advised by his occ ther to present to this hospital's emergency department for further evaluation and treatment. As per medical records, the patient has also been described as having cognitive issues without focal weakness.
Dizziness resolved as of noon today, 3 days after onset of symptoms. No prior episodes. Lip burning is present in both lips and tongue numbness, overall reduced in severity.
Objective Data
Vital Signs
Temp Pulse Resp BP Pulse Ox
36.7 C 80 18 150/74 93
08/27/24 11:01 08/27/24 11:01 08/27/24 11:01 08/27/24 11:01 08/27/24 11:01
Lab Results
08/27/24 08:09
08/27/24 08:09
Sodium 138 mmol/L (135-145) 08/27/24 08:09
Potassium 4.3 mmol/L (3.5-5.1) 08/27/24 08:09
BUN 25 mg/dl (9-20) H 08/27/24 08:09
Glucose 103 mg/dl (70-99) H 08/27/24 08:09
Calcium 8.5 mg/dl (8.4-10.2) 08/27/24 08:09
LDL Cholesterol, Calc 68 mg/dl 08/27/24 08:09
Patient Allergies
lobster Allergy (Verified 08/26/24 20:20)
CARRIBEAN LOBSTER-ANAPHYLAXIS
macadamia nut oil Allergy (Verified 08/26/24 20:20)
MACADAMIA NUTS-ANAPHYLAXIS
CVA Assessment
Onset of Stroke Symptoms
Onset of symptoms known: Yes
Date of onset of symptoms: 08/25/24
Time of onset of symptoms: 07:45
Time pt last seen normal is known: Yes
Date last time pt seen normal: 08/25/24
Time last time pt seen normal: 07:45
NIH Stroke Score
Level of Consciousness: 0 - Alert
LOC Questions: 0-Answers both correctly
LOC Commands: 0-Performs both correctly
Best Horizontal Gaze: 0-Normal
Visual Guerrero: 0=Normal, no visual loss
Facial Palsy: 0=Normal, symmetrical
Motor - Right Arm: 0=No drift 10 seconds
Motor - Left Arm: 0=No drift 10 seconds
Motor - Right Le-No drift 5 seconds
Motor - Left Le-No drift 5 seconds
Limb Ataxia: 0-Absent
Sensation: 0-Normal
Best Language: 0-No aphasia
Dysarthria: 0-Normal
Extinction and Inattention: 0-No abnormality
Total Score:: 0
Tenecteplase Contraindications
Inclusion and Exclusion criteria reviewed: Yes
IAT Contraindications: NIHSS < 6
Review of Systems
-
History Source: Patient and Family
All other systems: Reviewed and negative
EENT: Negative Blurry Vision or Swallowing Difficulty
Respiratory: Negative Trouble Breathing
Cardiac: Negative Chest Pain
Abdomen/GI: Negative Incontinence of Stool
Genitourinary: Negative Incontinence
Musculoskeletal: Negative Back Pain or Neck Pain
Neuro: Negative Dizzy, Headache or Speech Problem
Physical Exam
-
General: No Apparent Distress and Appears Stated Age
Eyes: OU Absent Papilledema, Round OU and [place] Conjunctivae; Negative No Ptosis (Variable closure of the right eye, not the left)
HEENT: Anicteric and Moist Mucous Membranes
Neck: Full Range of Motion
Respiratory: No Dyspnea
Cardiac: No JVD
GI: Non-distended
Skin: Unremarkable
Extremities: No Clubbing, No Cyanosis and No Edema
Psych: Intact Judgement/Insight
Extended Neurological Exam
Mood & Affect: Mood Unremarkable and Affect Unremarkable
Attention Span & Concentration: Awake, Alert, Interactive and No Difficulty with 2 Step Request
Memory: Unremarkable
Tremor: Hand Tremor Absent and Head Tremor Absent
Speech: Quality Unremarkable and Quantity Unremarkable
Cranial Nerve II: Left Eye: Pupillary Reactivity Unremarkable, Pupillary Size Unremarkable and Visual Guerrero Intact
Cranial Nerve II: Right Eye: Pupillary Reactivity Unremarkable, Pupillary Size Unremarkable and Visual Guerrero Intact
Cranial Nerves III, IV, : Extraocular Movement: Extraocular Movement Full in all Directions
Cranial Nerve VII: Facial Symmetry: Normal Facial Symmetry
Cranial Nerve VIII: Hearing: Unremarkable Hearing to Normal Conversational Volume
Cranial Nerves IX, X: Palate Movement: Palate Elevation Symmetric
Cranial Nerve XI: Shoulder Shrug: Unremarkable
Cranial Nerve XII: Tongue Protusion: Midline
Muscle Strength, Overall: Full Throughout
Muscle Bulk & Tone: Bulk Unremarkable and Tone Unremarkable
Pronator Drift: No Drift in Upper Extremities and No Drift in Lower Extremities
Deep Tendon Reflexes: Absent Throughout
Touch Sensation: Unremarkable
Coordination: [id number] Testing Unremarkable
Babinski Sign: Absent Bilaterally
Gait & Station: Up from Seated Without Problem
Data Reviewed
-
CT-A: Report Reviewed
MRI Head: Report Reviewed and Image Reviewed
Labs: Report Reviewed
Lipid Profile: Report Reviewed
Reviewed with: Physician, Patient and Family
Old Records: Summarized
Medications
-
Active Medications
Generic Name Dose Route Start Last Admin
Trade Name Freq PRN Reason Stop Dose Admin
Acetaminophen 650 mg 08/26/24 21:42
Acetaminophen 650 Mg Rectal Suppository RECTAL 09/23/24 21:41
Q4HPRN PRN
CURRY, mild pain, or temp >100.4F
Acetaminophen 650 mg 08/26/24 21:42
Acetaminophen 325 Mg Tablet PO 09/23/24 21:41
Q4HPRN PRN
CURRY, mild pain, or temp >100.4F
Amlodipine Besylate 10 mg 08/27/24 08:00 08/27/24 08:59
Amlodipine 10 Mg Tablet PO 09/24/24 07:59 10 mg
DAILY KARLI Administration
Aspirin 81 mg 08/27/24 08:00 08/27/24 08:59
Aspirin 81 Mg Chewable Tablet PO 09/24/24 07:59 81 mg
DAILY KARLI Administration
Dextrose 12.5 grams 08/26/24 21:42
Dextrose 50% (0.5 Grams/Ml) 50 Ml Syringe IV 09/23/24 21:41
[id number] PRN
hypoglycemia
Protocol
Ezetimibe 10 mg 08/27/24 08:00 08/27/24 08:59
Ezetimibe (Zetia) 10 Mg Tablet PO 09/24/24 07:59 10 mg
DAILY KARLI Administration
Glucagon 1 mg 08/26/24 21:42
Glucagon 1 Mg Vial IM 09/23/24 21:41
PRN PRN
hypoglycemia
Protocol
Hydralazine HCl 50 mg 08/27/24 08:00 08/27/24 08:59
Hydralazine 50 Mg Tablet PO 09/24/24 07:59 50 mg
BID KARLI Administration
Sodium Chloride 1,000 mls @ 100 mls/hr 08/26/24 21:42 08/27/24 06:30
Nss IV 1,000 mls
.Q10H KARLI Administration
Insulin Aspart 0 units 08/27/24 07:30 08/27/24 13:12
Insulin Aspart Low Resistance 300 Units/3 Ml Pen.Injctr SC 09/24/24 07:29 Not Given
AC KARLI
Protocol
Montelukast Sodium 10 mg 08/27/24 08:00 08/27/24 08:59
Montelukast Sodium 10 Mg Tablet PO 09/24/24 07:59 10 mg
DAILY KARLI Administration
Non-Formulary Medication 1 spray 08/27/24 08:00
Fluticasone Propionate NASAL 09/24/24 07:59
DAILY KARLI
Non-Formulary Medication 1 pump 08/27/24 08:00
Testosterone TOPICAL 09/24/24 07:59
DAILY KARLI
Potassium Citrate 10 meq 08/27/24 08:00 08/27/24 08:59
Potassium Citrate 10 Meq Tablet PO 09/24/24 07:59 10 meq
BID KARLI Administration
Fluticasone/Salmeterol 2 puff 08/27/24 08:00 08/27/24 07:07
Advair Hfa 115/21 Inhaler INH 09/24/24 07:59 2 puff
R DAILY KARLI Administration
Sodium Chloride 0 flush 08/26/24 22:00
Sodium Chloride 0.9% (Flush) Syringe IV 09/23/24 21:59
PER PROTOCOL KARLI
Sodium Chloride 0 flush 08/26/24 23:00
Sodium Chloride 0.9% (Flush) Syringe IV 09/23/24 22:59
PER PROTOCOL KARLI
Triamcinolone Acetonide 1 applic 08/26/24 21:42
Triamcinolone Acetonide 0.1% (Ointment) 15 Gram Tube TOPICAL 09/23/24 21:41
DAILYPRN PRN
eczema
Home Medications
�Medication �Instructions �Recorded
amlodipine 10 mg tablet 10 mg PO DAILY Blood Pressure 02/29/24
candesartan 32 mg tablet 32 mg PO DAILY Blood Pressure 02/29/24
empagliflozin 25 mg tablet 25 mg PO DAILY Diabetes 02/29/24
(Jardiance)
ezetimibe 10 mg tablet 10 mg PO DAILY High Cholesterol 02/29/24
fexofenadine 180 mg tablet 180 mg PO DAILY Allergies 02/29/24
fluticasone 250 mcg-salmeterol 50 1 inh inhalation R DAILY 02/29/24
mcg/dose blistr powdr for Lung/Breathing Issues
inhalation
glimepiride 4 mg tablet 4 mg PO DAILY Diabetes 02/29/24
hydralazine 50 mg tablet 50 mg PO BID Blood Pressure 02/29/24
montelukast 10 mg tablet 10 mg PO DAILY Allergies 02/29/24
potassium citrate 10 mEq (1,080 10 meq PO BID Supplement 02/29/24
mg) tablet,extended release
fluticasone propionate 50 1 spray intranasal DAILY Allergies 08/26/24
mcg/actuation nasal
spray,suspension
metformin 500 mg tablet,extended 500 mg PO BID Diabetes 08/26/24
release 24 hr
rosuvastatin 40 mg tablet (Crestor) 40 mg PO DAILY High Cholesterol 08/26/24
spironolactone 25 mg tablet 25 mg PO BID Fluid 08/26/24
Retention/Swelling
testosterone 1 pump topical DAILY Hormonal Agent 08/26/24
tirzepatide 15 mg/0.5 mL 15 mg SC GAMA Diabetes 08/26/24
subcutaneous pen injector
(Lissette)
triamcinolone acetonide 0.1 % 1 applic topical DAILYPRN PRN 08/26/24
topical ointment eczema
Past History
Past History
ED Past Medical History: Asthma, HTN, Hypercholesterolemia, NIDDM and Other (Kidney stones, obstructive sleep apnea utilizes CPAP nightly, obesity, cervical stenosis)
ED Past Surgical History: Orthopedic (Left shoulder surgery 2008, right knee surgery 2007, epidural steroids 2014) and Urological (Left ureteral stent placement)
Social History
Tobacco: Non-smoker
Alcohol: Occasional
Personal:
Living: with family
Employment: Retired
Family History
Family History: Hypertension
[2024-08-27] MEDS: PLAVIX 75 MG PO (16:18)
[2024-08-27 17:20] LABS: Glucose - Point of Care 111 mg/dl (70-99)
--- NOTE | 2024-08-27 17:34 | CM ---
Alert awake oriented patient who lives with his María who lives in a 3 story home with 2 step to enter and 14 steps to bed and bathroom. He is independent in driving and in all activities of daily living.He was offered VN he declined need.CARTER
letter given signed on chart.CPAP at [facility]
No VN hx / No SNF history
Pharmacy [facility]
PCP DR OROZCO
PLAN Home Declined VN
[2024-08-27 21:35] LABS: Glucose - Point of Care 92 mg/dl (70-99)
[2024-08-28] VITALS (8 sets, daily range): BP systolic 118–155; BP diastolic 66–87; PULSE 72–96; O2SAT 97
[2024-08-28] MEDS: NSS 1000 IV ×2 (06:09→14:59)
[2024-08-28 07:19] LABS: Blood Urea Nitrogen 19 mg/dl (9-20); Calcium 8.5 mg/dl (8.4-10.2); Carbon Dioxide 21 mmol/L (22-30); Chloride 108 mmol/L (98-107); Estimated Creatinine Clearance 68 ml/min; Glucose 98 mg/dl (70-99); Magnesium 1.9 mg/dl (1.6-2.3); Phosphorus 3.4 mg/dl (2.5-4.5); Potassium 4.1 mmol/L (3.5-5.1); Sodium 137 mmol/L (135-145); eGFR 54.75
[2024-08-28 07:24] LABS: Glucose - Point of Care 88 mg/dl (70-99)
[2024-08-28] MEDS: ADVAIR HFA 115/21 MCG INHALER 2 PUFF INH (07:30)
[2024-08-28 07:33] LABS: Erythrocyte Sed Rate 11 mm/hour (0-20)
[2024-08-28] MEDS: LOW STRENGTH ASPIRIN 81 MG PO (08:36)
[2024-08-28] MEDS: SINGULAIR 10 MG PO (08:36)
[2024-08-28] MEDS: APRESOLINE 50 MG PO ×2 (08:36→20:16)
[2024-08-28] MEDS: ZETIA 10 MG PO (08:36)
[2024-08-28] MEDS: NORVASC 10 MG PO (08:36)
[2024-08-28] MEDS: PLAVIX 75 MG PO (08:36)
[2024-08-28] MEDS: UROCIT-K 10 MEQ PO ×2 (08:36→20:16)
[2024-08-28] MEDS: PRAVACHOL 40 MG PO (08:36)
--- NOTE | 2024-08-28 12:18 | W.PN.HOSP.TC ---
Today's Communication/Plan
-
cont IVF support
monitor renal function
PT/OT
resume metformin
home candesartan to resume in AM
Assessment / Plan
Assessment / Plan
Physical Exam
General: No acute distress, appears comfortable at this time
HEENT: NormoCephalic, Moist mucous membranes and Atraumatic
Respiratory: Clear
Cardiac: S1/S2 and Regular Rhythm; No Murmur or Rub
GI: Soft, Non Tender, Non Distended and Normal Bowel Sounds; No Organomegaly
Musculoskeletal: No Clubbing, No Cyanosis and No Edema, strength 5/5 all ext's
Skin: No Rash
Neuro: AO x 3 immediate and delayed recall intact, finger to nose test wnl, normal heel to alvarado test
Psych: Calm
69M HTN, HLD, DM, Obesity, and asthma p/w dizziness 1 day duration. Reported feeling very unsteady on his feet and he thought he was about to fall. Reported room spinning. Symptoms persisted throughout the day, relieved with sitting down, worse
every time he moves. Patient complained his lips and tongue burning. He was noted confused as per , forgetting what medication he was taking. He started taking rosuvastatin 3 days ago and initially thought he may have been having a medication
side effect. CTA negative. Subsequent MRI however returned positive for stroke. Patient was also noted to have mild ERIC on labwork.
#dizzy/ambulatory dysfunction/metabolic encephalopathy likely due to Stroke
-CTA negative
-UA negative
-MRI positive for acute on subacute infarction multiple areas Left Thalamus, Left Temporal, Right Occipital
-statin and asa continued, Plavix added for planned 21 days dual antiplatelet then cont with ASA alone.
-ST eval appreciated mild cognitive impairment (MOCA 23/30, normal 26/30 or above)
-PT/OT appreciated possible benefit Acute rehab vs outpt therapy (patient prefers outpt)
-orthostatic hypotension, monitor orthostatic vitals
-Neuro eval appreciated outpt follow up with Cardiology for [facility] and implantable psych tech
#acute kidney/metabolic acidosis likely dehydration
#possible underlying CKD III
-initial Cr improved from 1.7 to 1.4
-cont IVF support
-monitor renal function
#leukocytosis likely reactive
-resolved without need for abx
#hx type 2 Dm
-sliding scale
-CHO diet
-updated A1c 5.9 pre-diabetic range
-cont hold Jardiance, glimepiride,
-metformin resumed, previously held d/t ERIC as above
#essential HTN
- eric and orthostatic hypotension improving
-Norvasc,Hydralazine, candesartan continued with hold parameter
-cont hold spironolactone
#Obstructive sleep apnea
-C pap continued
#hst of asthma
-patient not in acute exacerbation
-nebs from home continued
#HLD
-statin continued
#DVT prophylaxis
-scd
#CODE status
-full code
PT/OT appreciated outpt therapy
Discussed with patient and patient's María
I spent a total of 45 minutes with the patient or on the floor. More than 50% of this time involved counseling and coordination of care.
Anticipated Discharge: Within 24 hours
Subjective/Interval History
-
Date of Service: August 28, 2024
No acute distress sitting up comfortably in chair. Overall reports feeling well. Denies new acute issues at this time.
Objective Data
-
Labs:
Laboratory Results
08/28/24
06:33
Sodium 137
Potassium 4.1
Chloride 108 H
Carbon Dioxide 21 L
BUN 19
Creatinine 1.4 H
Glucose 98
Calcium 8.5
Vital Signs:
Vital Signs
Temp Pulse Resp BP Pulse Ox
98.4 F 72 16 148/75 93
08/28/24 07:35 12/28/24 07:35 08/28/24 07:35 08/28/24 07:35 08/28/24 07:35
I&O
08/27/24 08/28/24 08/29/24
06:59 06:59 06:59
Intake Total 0 / 0 720 / 720
Balance 0 / 0 720 / 720
[2024-08-28 12:20] LABS: Glucose - Point of Care 137 mg/dl (70-99)
[2024-08-28 16:47] LABS: Glucose - Point of Care 108 mg/dl (70-99)
[2024-08-28] MEDS: GLUCOPHAGE XR EXTENDED RELEASE 500 MG PO (17:43)
[2024-08-28 21:20] LABS: Glucose - Point of Care 121 mg/dl (70-99)
[2024-08-29] MEDS: NSS 1000 IV ×2 (00:48→09:30)
[2024-08-29 03:23] VITALS: BP 117/62; BP 123/61; BP 124/60; PULSE 81; PULSE 83; PULSE 85
--- NOTE | 2024-08-29 06:23 | W.PN.HOSP.TC ---
Today's Communication/Plan
-
discharge
Assessment / Plan
Assessment / Plan
Physical Exam
General: No acute distress, appears comfortable at this time
HEENT: NormoCephalic, Moist mucous membranes and Atraumatic
Respiratory: Clear
Cardiac: S1/S2 and Regular Rhythm; No Murmur or Rub
GI: Soft, Non Tender, Non Distended and Normal Bowel Sounds; No Organomegaly
Musculoskeletal: No Clubbing, No Cyanosis and No Edema, strength 5/5 all ext's
Skin: No Rash
Neuro: AO x 3
Psych: Calm
69M HTN, HLD, DM, Obesity, and asthma p/w dizziness 1 day duration. Reported feeling very unsteady on his feet and he thought he was about to fall. Reported room spinning. Symptoms persisted throughout the day, relieved with sitting down, worse
every time he moves. Patient complained his lips and tongue burning. He was noted confused as per , forgetting what medication he was taking. He started taking rosuvastatin 3 days ago and initially thought he may have been having a medication
side effect. CTA negative. Subsequent MRI however returned positive for stroke. Patient was also noted to have mild ERIC on labwork.
#dizzy/ambulatory dysfunction/metabolic encephalopathy likely due to Stroke
-CTA negative
-UA negative
-MRI positive for acute on subacute infarction multiple areas Left Thalamus, Left Temporal, Right Occipital
-statin and asa continued, Plavix added for planned 21 days dual antiplatelet then cont with ASA alone.
-ST eval appreciated mild cognitive impairment (MOCA 23/30, normal 26/30 or above)
-PT/OT appreciated outpt therapy (script provided)
-orthostatic hypotension resolved
-Neuro eval appreciated outpt follow up with Cardiology for [facility] and implantable director of industrial relations (follows Dr Gentile)
#acute kidney/metabolic acidosis likely dehydration
#likely underlying CKD III
-initial Cr improved from 1.7 to 1.3
-ERIC resolved
-IVF support completed
#leukocytosis likely reactive
-resolved without need for abx
#hx type 2 Dm
-sliding scale
-CHO diet
-updated A1c 5.9 pre-diabetic range
-Jardiance and glimepiride discontinued, sugars well controlled without
-metformin resumed, previously held d/t ERIC as above
#essential HTN
- eric and orthostatic hypotension resolved
-Norvasc,Hydralazine, candesartan continued with hold parameter
-cont hold spironolactone (follow up with primary and/or cardiology for consideration to resume)
#Obstructive sleep apnea
-C pap continued
#hx asthma
-patient not in acute exacerbation
-nebs from home continued
#HLD
-statin continued
#DVT prophylaxis
-scd
#CODE status
-full code
PT/OT appreciated outpt therapy (script provided)
Medically stable for discharge home with outpt follow up recommendations.
Discussed with patient and patient's María
Total Time Preparing Discharge ___40____ minutes including examination of the patient, summary of the hospital stay, instructions for continuing care to all relevant caregivers; and preparation of discharge records, prescriptions, and referral
forms if necessary.
Anticipated Discharge: Today
Subjective/Interval History
-
Date of Service: August 29, 2024
Seen and examined at bedside in no acute distress sitting up comfortably in bed. Reports feeling well. Denies new acute issues. Eager to go home
Objective Data
-
Labs:
Laboratory Results
08/29/24
06:20
Sodium Pending
Potassium Pending
Chloride Pending
Carbon Dioxide Pending
BUN Pending
Creatinine Pending
Glucose Pending
Calcium Pending
Vital Signs:
Vital Signs
Temp Pulse Resp BP Pulse Ox
98.3 F 81 20 123/61 93
08/29/24 03:23 08/29/24 03:23 08/29/24 03:23 08/29/24 03:23 08/29/24 03:23
I&O
08/27/24 08/28/24 08/29/24
06:59 06:59 06:59
Intake Total 0 / 0 720 / 720
Balance 0 / 0 720 / 720
[2024-08-29 07:40] VITALS: BP 137/66
[2024-08-29 07:46] LABS: Blood Urea Nitrogen 14 mg/dl (9-20); Calcium 8.5 mg/dl (8.4-10.2); Carbon Dioxide 21 mmol/L (22-30); Chloride 107 mmol/L (98-107); Estimated Creatinine Clearance 73 ml/min; Glucose 86 mg/dl (70-99); Magnesium 1.8 mg/dl (1.6-2.3); Phosphorus 3.5 mg/dl (2.5-4.5); Sodium 138 mmol/L (135-145); eGFR 59.84
[2024-08-29 08:06] LABS: Glucose - Point of Care 85 mg/dl (70-99)
[2024-08-29] MEDS: ADVAIR HFA 115/21 MCG INHALER 2 PUFF INH (09:00)
[2024-08-29] MEDS: ATACAND 32 MG PO (09:24)
[2024-08-29] MEDS: NORVASC 10 MG PO (09:24)
[2024-08-29] MEDS: UROCIT-K 10 MEQ PO (09:24)
[2024-08-29] MEDS: LOW STRENGTH ASPIRIN 81 MG PO (09:24)
[2024-08-29] MEDS: SINGULAIR 10 MG PO (09:24)
[2024-08-29] MEDS: ZETIA 10 MG PO (09:25)
[2024-08-29] MEDS: PRAVACHOL 40 MG PO (09:25)
[2024-08-29] MEDS: PLAVIX 75 MG PO (09:25)
[2024-08-29] MEDS: APRESOLINE 50 MG PO (09:27)
[2024-08-29] MEDS: GLUCOPHAGE XR EXTENDED RELEASE 500 MG PO (09:27)
--- NOTE | 2024-08-29 11:28 | W.DCSUMMARY ---
Discharge Summary
Discharge Data
Date of Admission: 08/27/24
Date of Discharge: 08/29/24
-
Pending Results: No
Discharge Plan
-
Patient Disposition: Home (Routine Discharge)
Discharge Diagnosis/Procedures: Stroke
acute kidney/metabolic acidosis likely dehydration resolved
Chronic Kidney Disease Stage III
History Diabetes, most recent A1c 5.9 (prediabetic range)
Hypertension
Orthostatic Hypotension resolved
Condition: Fair
Diet: Diabetic, Carb Controlled
Activity: As tolerated
Driving Restrictions: As prior to admission
Bathing Restrictions: None
Blood Work: Please repeat BMP with primary care provider in 1 week of discharge.
Repeat HgbA1c with primary care provider in 1 month of discharge.
Others Tests: Follow up with Cardiology in 1 week for [facility] (transesophageal echocardiogram) and outpatient tamping machine operator
Other Services: PT and OT
Activity Restrictions/Additional Instructions:
Please follow up with primary care provider and Cardiology in 1 week of discharge. Neurology in 1 month of discharge.
Aspirin Plavix dual antiplatelet have been prescribed for stroke. September 16, 2024 is your last day with Plavix, then continue with aspirin alone from then on.
Glimepiride and Jardiance have been discontinued as sugars have been well controlled without and recent A1c 5.9 (prediabetes level). Please follow up with primary care provider and/or earring maker before considering to resume
Aldactone (also known as spironolactone) has been placed on hold due to orthostatic hypotension and mild Acute Kidney Injury since resolved. Please follow up with your primary care provider and/or acquisition consultant to determine when safe to resume, if
necessary to resume, and/or if an alternative agent is required instead.
Please take medications as prescribed/recommended and follow up with primary care provider and/or other healthcare provider involved in your care for refills and/or further adjustment to your medication regimen as necessary.
Keep a log of your pressures at home, twice a day, results to be discussed with your primary care provider and/or cardiology for further evaluation/management hypertension.
Referrals:
Olegario Gentile MD [Active] - in one week
Lauri Henderson MD [Family Provider] - in one week
Samir Cat MD [Active] - in one month
Prescriptions:
New
clopidogrel 75 mg Tablet
75 mg PO DAILY 18 Days Qty: 18 0RF
Rx Instructions:
Sep 16 2024 is your last day of dual antiplatelet.
Stop Plavix afterwards and continue with aspirin alone.
aspirin 81 mg Tablet,Chewable
81 mg PO DAILY Qty: 30 0RF
Continued
fluticasone propion-salmeterol 250-50 mcg/dose Blister With Device
1 inh INHALATION R DAILY
fexofenadine 180 mg Tablet
180 mg PO DAILY
amlodipine 10 mg Tablet
10 mg PO DAILY
potassium citrate 10 mEq (1,080 mg) Tablet Extended Release
10 meq PO BID
candesartan 32 mg Tablet
32 mg PO DAILY
montelukast 10 mg Tablet
10 mg PO DAILY
hydralazine 50 mg Tablet
50 mg PO BID
ezetimibe 10 mg Tablet
10 mg PO DAILY
triamcinolone acetonide 0.1 % Ointment
1 applic TOPICAL DAILYPRN PRN (Reason: eczema)
fluticasone propionate 50 mcg/actuation [place],Suspension
1 spray INTRANASAL DAILY
metformin 500 mg Tablet Extended Release 24 Hr
500 mg PO BID
testosterone 20.25 mg/1.25 gram (1.62 %) Gel In Metered-Dose Pump
1 pump TOPICAL DAILY
Mounjaro 15 mg/0.5 mL Pen Injector
15 mg SC GAMA
pravastatin 40 mg Tablet
40 mg PO DAILY
Held
spironolactone 25 mg Tablet
25 mg PO BID
Hold Instructions: Follow up with primary care provider and/or cardiology to determine when safe to resume, if necessary to resume, and/or if an alternative agent is required instead.
Discontinued
glimepiride 4 mg Tablet
4 mg PO DAILY
Jardiance 25 mg Tablet
25 mg PO DAILY
Discharge Orders:
Discharge Patient (As Directed); Ordered 08/29/24
Ordered By: Maame Conteh
Discharge Date and Time
Print Language: AZERBAIJANI
[2024-08-29 11:30] VITALS: BP 138/71
--- NOTE | 2024-08-29 11:42 | CM ---
CM following re: discharge planning.
Reviewed pt's chart, met with pt.
Discharge order noted. Pt is aware, expressed his agreement and pt stated his spouse will transport home.
IMM reviewed, placed on chart, pt has a copy.
PT and OT evaluations noted - outpatient PT/OT recommended. Pt is aware, expressed his agreement. A script for outpatient PT/OT provided by .
D/C plan: home with outpatient therapy and family support. Spouse to transport.
[2024-08-29 12:40] LABS: Glucose - Point of Care 98 mg/dl (70-99)
== END 2024-08-29 14:52 | disposition home or self-care (01) | DRG 65 ==
LOC: 4 EAST ACU 16:34
PROVIDERS: Physician Assistant; Registered Nurse; ADMITTING PHYSICIAN Hospitalist; ATTENDING PHYSICIAN Internal Medicine; CONSULT PHYSICIAN Psychiatry & Neurology Neurology; EMERGENCY PHYSICIAN Student in an Organized Health Care Education/Training Program; FAMILY PHYSICIAN Internal Medicine
DX: I63.9 Cerebral infarction, unspecified (principal); E87.20 Acidosis, unspecified; N17.9 Acute kidney failure, unspecified; N18.30 Chronic kidney disease, stage 3 unspecified; I12.9 Hypertensive chronic kidney disease with stage 1 through stage 4 chronic kidney disease, or unspecified chronic kidney disease; E11.22 Type 2 diabetes mellitus with diabetic chronic kidney disease; E78.00 Pure hypercholesterolemia, unspecified
CPT/HCPCS: 70496; 70498; 70551; 80048; 80053; 80061; 81003; 81015; 82962; 83036; 83735; 84100; 85025; 85027; 85652; 86140; 87086; 92523; 92610; 93005; 94640; 97112; 97116; 97163; 97167; 97530; 99285; Q9967

== ENCOUNTER 2024-09-13 07:15 | Day surgery (SDC) | payer MEDICARE, OTHER, SELFPAY ==
--- NOTE | 2024-09-13 09:28 | ITS.CL.IMPLP ---
[employer] - Implant Loop
Implant Loop
Procedure Report:
Procedure: Insertion of Loop Recorder.�
Date of the procedure: 09/13/2024
Procedure Physician: Helena Bowles MD [facility]
Indication: Cryptogenic stroke
Description of the procedure:
Patient was brought to the holding area after informed consent was obtained from the patient. The time-out was performed immediately before the procedure.
The left parasternal chest area was prepped and draped in sterile fashion with chlorhexidine prep x 3 times. Lidocaine 1% was injected subcutaneously for local anesthesia. The loop recorder was tunneled and then injected into the subcutaneous
tissue. The tunneling tool was removed leaving the loop recorder in place. The dermis was closed with steristrips and a pressure Tegaderm dressing was placed. There were no immediate complications.
Post procedure, the device was interrogated and showed good detectable P and R waves.
There were no immediate complications.
Device:
LINQII; Model: [id number]; Serial #:[id number]
R wave amplitude: 0.22 mV
Final Programming:
��������������� Tachycardia Detection: >182 bpm for 16 beats
��������������� Bradycardia Detection: 30 bpm for 12 beats, Asystole for 5 seconds.
��������������� Atrial fibrillation detection: On with > 10 min duration
Conclusion:
Successful insertion of loop recorder.
Recommendation:
Routine post-insert loop care.
== END 2024-09-13 10:08 | disposition home or self-care (01) ==
LOC: CATH 07:15
PROVIDERS: ATTENDING PHYSICIAN Student in an Organized Health Care Education/Training Program; FAMILY PHYSICIAN Internal Medicine; OTHER PHYSICIAN Internal Medicine
DX: Z09 Encounter for follow-up examination after completed treatment for conditions other than malignant neoplasm (principal); Z86.73 Personal history of transient ischemic attack (TIA), and cerebral infarction without residual deficits; I08.1 Rheumatic disorders of both mitral and tricuspid valves; I70.0 Atherosclerosis of aorta
CPT/HCPCS: 33285; 93312; 93320; 93325; C1764

== ENCOUNTER 2024-09-30 13:41 | Outpatient (RCR) | payer MEDICARE, OTHER, SELFPAY | END 2024-09-30 23:59 | disposition home or self-care (01) | LOC: ROT 13:41 | PROVIDERS: ATTENDING PHYSICIAN Internal Medicine | DX: I69.998 Other sequelae following unspecified cerebrovascular disease (principal); I69.918 Other symptoms and signs involving cognitive functions following unspecified cerebrovascular disease; R26.89 Other abnormalities of gait and mobility; Z73.6 Limitation of activities due to disability | CPT/HCPCS: 97110; 97112; 97163; 97167; 97530; 97535 ==

== ENCOUNTER 2024-10-20 15:49 | Outpatient (RCR) | payer MEDICARE, OTHER, SELFPAY | END 2024-10-20 23:59 | disposition home or self-care (01) | LOC: ROT 15:49 | PROVIDERS: ATTENDING PHYSICIAN Internal Medicine | DX: I69.998 Other sequelae following unspecified cerebrovascular disease (principal); I69.918 Other symptoms and signs involving cognitive functions following unspecified cerebrovascular disease; R26.89 Other abnormalities of gait and mobility; Z73.6 Limitation of activities due to disability | CPT/HCPCS: 97110; 97112; 97530; 97535 ==

== ENCOUNTER → 2025-06-14 11:20 | Outpatient (REF) | payer MEDICARE, OTHER, SELFPAY | LOC: HWRAD 11:20 | PROVIDERS: ATTENDING PHYSICIAN Surgery; FAMILY PHYSICIAN Internal Medicine | DX: N20.0 Calculus of kidney (principal) | CPT/HCPCS: 76775 ==